=== PATIENT | female | born 1960 | race Caucasian/White ===

== ENCOUNTER → 2017-01-08 | Outpatient (CLI) | payer OTHER ==
--- NOTE | 2017-01-09 07:52 | RAD ---
Left lower extremity venous Doppler ultrasound History: Left lower extremity swelling since July,. Comparison: None. Procedure: Color Doppler, spectral Doppler, and grayscale images are obtained with and without compression in the area of the common femoral vein, superficial femoral vein - femoral vein junction, main femoral vein (superficial femoral vein) and popliteal vein. Veins of the proximal calf are also imaged. Findings: There is normal duplex flow, color flow and compressibility of all visualized vein segments. No evidence of deep venous thrombosis is present. Grayscale imaging demonstrates incidental note of a gently lobulated hypoechoic appearing mass which appears to be within the substance of the muscle of the distal thigh. This measures 2.6 x 1.0 x 0.9 cm and appears to have some areas of internal vascularity. Impression: 1. No evidence of left lower extremity deep venous thrombosis. 2. Incidental small soft tissue mass is seen measuring 2.6 cm in maximum dimension which appears to be within the substance of the musculature of the distal thigh. Further evaluation could be made with MRI with intravenous contrast
== END | disposition home or self-care (01) ==
LOC: US 16:53
PROVIDERS: ATTEND Nurse Practitioner Family
DX: M79.89 Other specified soft tissue disorders (principal); M79.606 Pain in leg, unspecified
CPT/HCPCS: 93971

== ENCOUNTER → 2017-06-04 | Outpatient (CLI) | payer OTHER ==
--- NOTE | 2017-06-04 14:22 | RAD ---
Lumbar spine, 3 views, 06/04/2017: History: Knee pain The lumbar vertebral heights are well-maintained. Intravertebral disc spaces are well preserved. No fracture or dislocation is identified. There are minimal degenerative changes involving facet joints in the lower lumbar spine. The paraspinous soft tissues are unremarkable. IMPRESSION: No acute lumbar spine abnormality is detected.
== END | disposition home or self-care (01) ==
LOC: DXRADRC 10:27
PROVIDERS: ATTEND Nurse Practitioner Family
DX: M47.26 Other spondylosis with radiculopathy, lumbar region (principal); M25.562 Pain in left knee
CPT/HCPCS: 72100

== ENCOUNTER → 2018-01-14 | Outpatient (CLI) | payer OTHER ==
--- NOTE | 2018-01-14 17:42 | RAD ---
Left thigh ultrasound, 01/14/2018: HISTORY: Thigh tightness The area of clinical concern was carefully scanned. In the medial aspect of the mid thigh there is a well marginated oval shaped hypoechoic mass measuring 2.8 x 1.0 x 2.9 cm. It is unchanged in size since the 01/08/2017 exam. It lies within a muscle bundle. There appears to be minimal internal vascularity. A moderate-sized knee joint effusion is evident. A 5 x 3 x 5 cm popliteal cyst is present. A benign-appearing lymph node is noted in the upper thigh. No other abnormality is detected. IMPRESSION: 1. Unchanged nonspecific small medial thigh mass as described above. Its stability suggests a benign etiology. 2. Moderate size knee joint effusion. 3. Moderate sized popliteal cyst. Electronically signed by: Delfin Padilla MD (01/14/2018 5:38 PM) [facility]
== END | disposition home or self-care (01) ==
LOC: US 09:28
PROVIDERS: ATTEND Nurse Practitioner Family
DX: M71.22 Synovial cyst of popliteal space [Baker], left knee (principal); M25.462 Effusion, left knee
CPT/HCPCS: 76881

== ENCOUNTER → 2019-02-04 | Outpatient (CLI) | payer OTHER ==
--- NOTE | 2019-02-04 16:01 | RAD ---
DATE: 02/04/2019 EXAM: MAMMO BRANDY PAULA, BREAST LEFT HISTORY: Left breast pain COMPARISON: 08/07/2016 This study was interpreted with the benefit of Computerized Aided Detection (CAD). Breast Density: SCATTERED The breast parenchyma shows scattered fibroglandular densities. Breast parenchyma level B. FINDINGS: 2-D and 3-D tomosynthesis imaging was performed in CC and MLO projections. The fibroglandular pattern is somewhat nodular in character. A 4 mm nodule is seen superomedially in the anterior aspect of the left breast at the 11:00 location as best seen on CC tomosynthesis image #47. This was not clearly visible on previous studies. No other new or enlarging breast densities are seen. No suspicious microcalcifications are evident. Left breast ultrasound, 02/04/2019: A targeted ultrasound exam of the left breast was performed at the 11:00 location. Approximately 2.5 cm from the nipple there is a 5 x 5 x 4 mm smooth, round nodule with low level internal echoes. There is posterior acoustic enhancement. This is probably a small cyst with some internal debris. There is a nearby smaller 3 x 3 x 2 mm nodule with similar sonographic characteristics. The larger of these 2 lesions probably corresponds to the mammographic finding, although that cannot be stated with certainty. No definite solid or shadowing breast lesion is seen in this region. IMPRESSION: Probably benign left breast nodules as described above. Follow-up left mammography and left breast ultrasound in 6 months is suggested. BI-RADS CATEGORY: 4 SUSPICIOUS ABNORMALITY- BIOPSY SHOULD BE CONSIDERED RECOMMENDED FOLLOW-UP: 6M 6 MONTH FOLLOW-UP PQRS compliance statement: Patient information was entered into a reminder system with a target due date for the next mammogram. Mammography is a sensitive method for finding small breast cancers, but it does not detect them all and is not a substitute for careful clinical examination. A negative mammogram does not negate a clinically suspicious finding and should not result in delay in biopsying a clinically suspicious abnormality. "Our facility is accredited by the [employer] Mammography Program."
== END | disposition home or self-care (01) ==
LOC: MAMMO 13:42
PROVIDERS: ATTEND Physician Assistant Medical
DX: N63.22 Unspecified lump in the left breast, upper inner quadrant (principal); N60.12 Diffuse cystic mastopathy of left breast
CPT/HCPCS: 76641; 77066; G0279; 77062

== ENCOUNTER → 2019-12-28 | Outpatient (CLI) | payer OTHER ==
--- NOTE | 2019-12-28 16:16 | RAD ---
EXAMINATION: MAMMO BRANDY DIAG LT, BREAST LEFT, 12/28/2019 2:00 PM CLINICAL INDICATION: 69-year-old woman returning for six-month follow-up of probably benign left breast mass. COMPARISON: Left breast diagnostic mammogram and ultrasound 02/04/2019 MAMMOGRAPHIC FINDINGS: 2D and 3D CC and MLO views of the left breast were obtained. The left breast contains scattered areas of fibroglandular density. A 4 mm mass at 1:00 in the left breast middle depth and adjacent 2 mm mass at 11:00 anterior depth, best seen on CC views, are unchanged. No new mass or suspicious calcification. SONOGRAPHIC FINDINGS: Targeted ultrasound of the upper left breast was performed. The ovoid, circumscribed anechoic mass with some internal echoes at 12:00 3 cm from the nipple is unchanged. This measures 5 x 5 x 4 mm, has smooth margins, posterior acoustic enhancement, and no vascularity. Adjacent similar-appearing cystic mass measuring 2 to 3 mm at 11:30 is also unchanged. IMPRESSION: 1. Unchanged probably-benign mass at 12:00 and 11:30, 3 cm from the nipple in the left breast. These are most likely complicated cysts. 2. BI-RADS 3-probably benign. 3. Recommend diagnostic left breast mammogram and ultrasound in 6 months to ensure stability. The patient will receive a reminder letter by mail when she is due for her next exam. Electronically signed by: Chelle Ellis MD (12/28/2019 4:13 PM) [id number]
== END ==
LOC: MAMMO 13:44
PROVIDERS: ATTEND Physician Assistant Medical
DX: N60.02 Solitary cyst of left breast (principal); N63.42 Unspecified lump in left breast, subareolar
CPT/HCPCS: 76641; 77065; G0279; 77061

== ENCOUNTER → 2020-10-12 | Outpatient (CLI) | payer OTHER ==
--- NOTE | 2020-10-12 09:02 | RAD ---
EXAMINATION: XR KNEE_AP BILAT STANDING, XR KNEE_LT 1-2 VIEWS CLINICAL HISTORY: Left knee pain TECHNIQUE: XR KNEE_AP BILAT STANDING, XR KNEE_LT 1-2 VIEWS Number of Images/Views: 3 COMPARISON: None FINDINGS: Moderate medial and lateral compartment narrowing. Joint space and the patellofemoral compartment cindy ntained. No acute fracture. Moderate joint effusion. Limited evaluation of the right knee demonstrates similar joint space narrowing. IMPRESSION: Mild to moderate bicompartmental degenerative changes left knee, greatest laterally. Electronically signed by: Luisito Levin DO (10/12/2020 9:00 AM) [id number]
== END ==
LOC: DXRAD 08:27
PROVIDERS: ATTEND Physician Assistant
DX: M17.12 Unilateral primary osteoarthritis, left knee (principal); M25.462 Effusion, left knee
CPT/HCPCS: 73560; 73565

== ENCOUNTER → 2021-10-30 | Outpatient (CLI) | payer OTHER ==
--- NOTE | 2021-10-30 13:49 | RAD ---
INDICATION: Screening for osteopenia/osteoporosis. Reason: / Spl. Instructions: / History: Post m enopausal evaluation COMPARISON: None. TECHNIQUE: Bone densitometry was performed through the lumbar spine and proximal femur. IMPRESSION: Lumbar Spine: BMD: 0.85 T-Score: -2.7 Range: Osteoporotic Proximal Femur: BMD: 0.65 T-Score: -2.4 Range: Osteopenic World Health Organization Criteria for Bone Density: T-Score: > -1.0: Normal Range < -1.0 to -2.5: Osteopenic Range < -2.5: Osteoporotic Range Electronically signed by: Ross Brown MD (10/30/2021 1:46 PM) [id number]
--- NOTE | 2021-10-30 14:18 | RAD ---
PROCEDURE: MG DIGITAL BILAT DIAGNOSTIC MAMMO WITH BRANDY, US BREAST LTD LT HISTORY: The patient is 60 years old and is seen for Reason: FOLLOW UP LEFT CYSTS / Spl. Instructions : / History: . COMPARISON: December 28, 2019 and February 04, 2019 TECHNIQUE: CC and MLO views of both breasts were obtained. Images were processed by the [employer] computer-aided detection system. Targeted ultrasound of the left breast. DENSITY: There are scattered fibroglandular densities. FINDINGS: Right mammogram: No developing mass, suspicious calcifications or architectural distortion. Left mammogram: No suspicious microcatheter dictation, mass or architectural distortion. Left ultrasound: Small well-circumscribed cyst within the left breast 12:00 position 3 cm from the ni pple measures 0.5 x 0.5 x 0.4 cm, unchanged compared to 2019. Small additional well-circumscribed cys tic lesion within the left breast 11:30 position 3 cm from the nipple measures 0.3 x 0.2 x 0.2 cm, un changed compared to 2019. IMPRESSION: 1. Benign findings. No evidence of malignancy. 2. Unchanged left breast cysts. Recommended annual screening mammogram. Recommend annual screening mammograms per [employer] guidelines. She will be due in one year. BI-RADS category 2 Benign Patient entered into a reminder system for annual screening mammogram. Electronically signed by: Pan Mims DO (10/30/2021 2:16 PM) [id number]
== END ==
LOC: MAMMO 12:46
PROVIDERS: ATTEND Physician Assistant Medical
DX: Z12.31 Encounter for screening mammogram for malignant neoplasm of breast (principal); M81.0 Age-related osteoporosis without current pathological fracture; M85.88 Other specified disorders of bone density and structure, other site; N60.02 Solitary cyst of left breast; N60.12 Diffuse cystic mastopathy of left breast; Z78.0 Asymptomatic menopausal state
CPT/HCPCS: 76642; 77066; 77080; G0279; 77062